=== PATIENT | male | born 1980 | race Two or more races ===

== ENCOUNTER 2017-01-16 10:33 | Emergency (ER) | payer BC ==
[~2017-01-16] VITALS: Ht 177.8 cm; Wt 93.9 kg
[~2017-01-16 10:33] MED LIST: HALO1TAB5 PO; LORA0.5T PO
--- NOTE | 2017-01-16 10:46 | NUR ---
DR CARMEN AT BEDSIDE FOR EVAL.
--- NOTE | 2017-01-16 10:48 | NUR ---
PT TO ER BED 09. CAME IN BECAUSE HE WAS CONCERNED ABOUT HIS BLOOD PRESSURE. AFTER MD [place]. PT STARTED C/O CHEST PAIN W/ TINGGLING SENSATION TO LUE. ON MONITOR. STABLE VITALS.
--- NOTE | 2017-01-16 10:50 | NUR ---
IV LINE STARTED BLOOD DRAWN AND SENT TO LAB.
[2017-01-16] MEDS ORDERED: MIRT15TA7 PO (10:51)
--- NOTE | 2017-01-16 10:57 | NUR ---
RADIOLOGY AT BEDSIDE FOR CHEST XRAY.
[2017-01-16 11:00] LABS: BASOPHILS % (AUTO) 0.6 % (0.0-2.0); EOSINOPHILS # (AUTO) 0.1 /CMM (0.0-0.7); EOSINOPHILS % (AUTO) 1.4 % (0.0-6.0); HEMATOCRIT 44 % (39-51); HEMOGLOBIN 14.7 g/dL (13.5-17.5); LYMPHOCYTES # (AUTO) 2.5 /CMM (0.8-4.8); LYMPHOCYTES % (AUTO) 33.7 % (20.0-44.0); MEAN CORPUSCULAR HEMOGLOBIN 29 PG (26.0-33.0); MEAN CORPUSCULAR HGB CONC 34 g/dl (31.0-36.0); MEAN CORPUSCULAR VOLUME 85 fL (80-96); MONOCYTES # (AUTO) 0.4 /CMM (0.1-1.30); MONOCYTES % (AUTO) 5.1 % (2.0-12.0); NEUTROPHILS # (AUTO) 4.3 /CMM (1.8-8.9); NEUTROPHILS % (AUTO) 59.2 % (43.0-81.0); PLATELET COUNT (AUTO) 233 /CMM (150-450); RDW COEFFICIENT OF VARIATION 11.7 (11.5-15.0); WHITE BLOOD COUNT (AUTO) 7.3 K/uL (4.3-11.0)
[2017-01-16 11:08] LABS: CALCIUM, SERUM 8.7 mg/dL (8.5-10.1); CARBON DIOXIDE 25 mmol/L (21-32); CHLORIDE 105 mmol/L (98-107); GFR 84 mL/min (>60); GLUCOSE 97 mg/dL (74-106); POTASSIUM 4.2 mmol/L (3.5-5.1); SODIUM SERUM 138 mmol/L (136-145); UREA NITROGEN, BLOOD 17 mg/dL (7-18)
[2017-01-16 11:21] LABS: TROPONIN I < 0.017 ng/mL (0.00-0.056)
--- NOTE | 2017-01-16 11:41 | NUR ---
Patient discharged to home in stable condition. Written and verbal after care instructions given. Patient verbalizes understanding of instruction.IV removed. Catheter intact and site benign. Pressure and 4x4 applied to site. No bleeding noted.
[2017-01-16 11:42] VITALS: BP 138/87
[2017-01-16 11:43] LABS: INR 0.97 (0.87-1.13); PROTHROMBIN TIME 10.1 SECS (9.5-12.7)
== END 2017-01-16 11:44 | disposition home or self-care (01) ==
LOC: ER 10:36
DX: R20.8 Other disturbances of skin sensation (principal); I10 Essential (primary) hypertension; F17.210 Nicotine dependence, cigarettes, uncomplicated; F32.9 Major depressive disorder, single episode, unspecified; R79.1 Abnormal coagulation profile; Z72.0 Tobacco use
CPT/HCPCS: 36415; 71010; 80048; 84484; 85025; 85730; 93005; 99285; A4606; Z7610

== ENCOUNTER 2019-10-12 15:23 | Emergency (ER) | payer BC ==
[~2019-10-12] VITALS: Ht 177.8 cm; Wt 93.0 kg
[~2019-10-12 15:23] MED LIST changes: +MIRT15TA7 PO
[2019-10-12] MEDS ORDERED: ASPIRIN 325 MG TABLET ONE (15:52)
[2019-10-12] MEDS ORDERED: ASPIRIN 325 MG TABLET PO ONE (16:00)
[2019-10-12 16:01] LABS: BASOPHILS % (AUTO) 0.6 % (0.0-2.0); EOSINOPHILS % (AUTO) 0.7 % (0.0-6.0); HEMATOCRIT 46 % (39-51); HEMOGLOBIN 15.6 g/dL (13.5-17.5); LYMPHOCYTES # (AUTO) 1.9 /CMM (0.8-4.8); LYMPHOCYTES % (AUTO) 21.6 % (20.0-44.0); MEAN CORPUSCULAR HGB CONC 34 g/dl (31.0-36.0); MEAN CORPUSCULAR VOLUME 87 fL (80-96); MONOCYTES # (AUTO) 0.5 /CMM (0.1-1.30); MONOCYTES % (AUTO) 5.9 % (2.0-12.0); NEUTROPHILS # (AUTO) 6.2 /CMM (1.8-8.9); NEUTROPHILS % (AUTO) 71.2 % (43.0-81.0); PLATELET COUNT (AUTO) 264 /CMM (150-450); RED BLOOD CELL COUNT(AUTO) 5.34 MIL/uL (4.5-6.0); WHITE BLOOD COUNT (AUTO) 8.8 K/uL (4.3-11.0)
--- NOTE | 2019-10-12 16:03 | NUR ---
jose raul, c/o hypertension, chest pain sharp started today stopped taking his BP meds x 2 weeks. connected to the monitor and pulse ox, kept comfortable, will continue to monitor accordingly.
[2019-10-12 17:00] LABS: CALCIUM, SERUM 9.1 mg/dL (8.5-10.1); CARBON DIOXIDE 24 mmol/L (21-32); CHLORIDE 102 mmol/L (98-107); CREATININE 0.9 mg/dL (0.6-1.3); GLUCOSE 98 mg/dL (74-106); SODIUM SERUM 136 mmol/L (136-145); UREA NITROGEN, BLOOD 24 mg/dL (7-18)
--- NOTE | 2019-10-12 17:18 | NUR ---
IV removed. Catheter intact and site benign. Pressure and 4x4 applied to site. No bleeding noted. Patient discharged to home in stable condition. Written and verbal after care instructions given. Patient verbalizes understanding of instruction.
[2019-10-12 17:19] VITALS: BP 120/82
== END 2019-10-12 17:20 | disposition home or self-care (01) ==
LOC: ER 15:26
DX: R07.89 Other chest pain (principal); I10 Essential (primary) hypertension; R42 Dizziness and giddiness; F17.210 Nicotine dependence, cigarettes, uncomplicated; F10.10 Alcohol abuse, uncomplicated; Y90.9 Presence of alcohol in blood, level not specified; Z98.890 Other specified postprocedural states; Z79.899 Other long term (current) drug therapy
CPT/HCPCS: 36415; 71045-TC; 80048-TC; 84484-TC; 85025-TC